=== PATIENT | female | born 1960 | race Caucasian/White ===

== ENCOUNTER → 2020-12-22 | Outpatient (CLI) | payer OTHER ==
--- NOTE | 2020-12-22 13:55 | RAD ---
EXAM: Pelvis and bilateral hips, 5 views. HISTORY: Pain. COMPARISON: None. FINDINGS: A frontal view of the pelvis and frontal and frog-leg views of both hips are obtained. Ther e is no acute fracture, dislocation or subluxation. The femoral heads are normal in configuration. Th ere is degenerative change involving the lower lumbar spine, not formally assessed on this exam. IMPRESSION: No acute osseous finding. Electronically signed by: Angelita Brown MD (12/22/2020 1:53 PM) [id number]
== END ==
LOC: RAD 13:37
PROVIDERS: ATTEND Physician Assistant
DX: M25.551 Pain in right hip (principal); M25.552 Pain in left hip; M47.816 Spondylosis without myelopathy or radiculopathy, lumbar region
CPT/HCPCS: 73521

== ENCOUNTER → 2021-05-13 | Outpatient (CLI) | payer OTHER ==
--- NOTE | 2021-05-13 14:17 | RAD ---
EXAM: Right foot, 3 views. HISTORY: Pain. COMPARISON: None. FINDINGS: 3 views of the right foot are obtained. There is a mildly displaced fracture involving the base of the fifth metatarsal. No additional fracture is seen. There is no foreign body. There is a sm all plantar spur. IMPRESSION: Mildly displaced fracture the base of the fifth metatarsal. Electronically signed by: Angelita Brown MD (05/13/2021 2:15 PM) [id number]
== END ==
LOC: RAD 13:51
PROVIDERS: ATTEND Registered Nurse
DX: S92.351A Displaced fracture of fifth metatarsal bone, right foot, initial encounter for closed fracture (principal); M77.31 Calcaneal spur, right foot; X58.XXXA Exposure to other specified factors, initial encounter; Y93.89 Activity, other specified; Y92.89 Other specified places as the place of occurrence of the external cause; Y99.8 Other external cause status
CPT/HCPCS: 73630